=== PATIENT | female | born 1955 | race Caucasian/White ===

== ENCOUNTER → 2020-11-09 | Day surgery (SDC) | payer MEDICARE ==
[2020-11-09 07:31] VITALS: RESP 16
[2020-11-09 08:39] VITALS: BP 134/71; PULSE 74; TEMP 98.3
--- NOTE | 2020-11-09 09:08 | MM ---
EXAMINATION TYPE: MG stereo VAD BX LT DATE OF EXAM: 11/09/2020 COMPARISON: Outside mammogram October 26, 2020 and older mammograms. CLINICAL HISTORY: Increasing group of calcifications left breast TECHNIQUE: Stereotactic guided core biopsy of left breast with clip placement and follow-up two-view mammogram. FINDINGS: The procedure of stereotactic guided core biopsy was explained to the patient. Benefits, alternatives, and risks were discussed. An informed consent was then obtained. [facility] pathway for biopsy was chosen. Shortness pathway was lateral approach. I performed the localization, then performed the remainder of the procedure. Overlying skin is cleansed with Betadine. Lidocaine is used as anesthetic into the skin and deeper tissue. Lidocaine with epinephrine is used as anesthetic into the deeper tissue during sampling. A vacuum assisted biopsy gun was used to obtain multiple core samples. The patient tolerated the procedure well without any immediate complication. The patient was kept in the radiology department for short stay after the procedure and then discharged home in stable condition. Targeted calcifications are identified in specimen mammogram. Post biopsy mammogram shows the clip to appear in satisfactory position relative to the targeted area of concern on the preprocedure images. IMPRESSION: SUCCESSFUL, UNCOMPLICATED STEREOTACTIC GUIDED CORE BIOPSY OF AREA OF CONCERN IN THE LEFT BREAST, FULL PATHOLOGY RESULTS TO FOLLOW. Low to intermediate index of suspicion noted at time of procedure. Pathology Results: High Risk LEFT BREAST, STEREOTACTIC CORE BIOPSY: Intraductal papilloma. Background breast showing focal atypical ductal hyperplasia (ADH) and fibrocystic changes. Recommendation Surgical consult, open biopsy of the left breast. DEANNAD
== END ==
LOC: RADMAMWWP 06:59
PROVIDERS: ATTEND Family Medicine
DX: D24.2 Benign neoplasm of left breast (principal); N60.12 Diffuse cystic mastopathy of left breast; N60.92 Unspecified benign mammary dysplasia of left breast
CPT/HCPCS: 88305; 19081; A4648; J2001

== ENCOUNTER → 2020-12-02 | Outpatient (CLI) | payer MEDICARE ==
[2020-12-02 15:54] VITALS: BP 126/75; PULSE 82; RESP 18; TEMP 98.2
--- NOTE | 2020-12-02 16:25 | P.GSHP ---
History of Present Illness H&P Date: 12/02/20 Chief Complaint: Intraductal papilloma/atypical hyperplasia on core biopsy of the left kale Gandhi is a 65-year-old white female seen in consultation for Dr. 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 The patient underwent a bilateral mammogram on [id number]. This revealed an increasing number of microcalcifications in the lateral aspect of the left breast at the 3 o'clock position. She subsequently underwent diagnostic left breast studies an 1220 320. This again showed microcalcifications at the 3 o'clock position of the left breast. The patient underwent a stereotactic core biopsy on 11/09/2020 of this area and this revealed intraductal papilloma and focal atypical ductal hyperplasia. The patient did not feel anything in her breast prior to the mammogram in October. She tolerated this stereotactic core biopsy with no difficulty. The patient is not complaining of any lumps masses or nodules in her breast. She is not complaining of any nipple discharge or skin changes. She has not had any history of recent trauma or infection of the breast. She had a cyst removed from her right breast many years ago which was benign. Caffiene: 1-2 cups/day nicotine: E-Cigarettes; 3/day thro-bromine: occasional Family History: maternal grandmother: breast cancer sister: from breast cancer, in her 50's niece: from breast cancer early 30's father: leukemia Hormonal History: menarche: 14 , breast fed: no; age at first : 20 menopause: hysterectomy at 35, took ovaries, no cancer BCP: 15 years hormones: none Surgical history: Total abdominal hysterectomy Left ear surgery Tonsillectomy Lipoma removed from her back 2 C-sections Medical history: diabetes Social History: nicotine: 2PPD/25 years; now E cigarettes for approximately 5 years Alcohol: Negative Drugs: Negative - Constitutional Constitutional: Denies chills, Denies fever - EENT Eyes: denies blurred vision, denies pain Ears: left: decreased hearing (ear drum replaced), deny: tinnitus Ears, nose, mouth and throat: Denies headache, Denies sore throat - Breasts Breasts: bilateral: as per HPI - Cardiovascular Cardiovascular: Denies chest pain, Denies shortness of breath - Respiratory Comment: smoker, sleep apnea Respiratory: Denies cough, Denies 7 - Gastrointestinal Gastrointestinal: Denies abdominal pain, Denies diarrhea, Denies nausea, Denies vomiting - Genitourinary (Female) Genitourinary: Denies dysuria, Denies hematuria - Menstruation Menstruation: Reports post hysterectomy - Musculoskeletal Comment: arthritis - Integumentary Integumentary: Denies pruritus, Denies rash - Neurological Neurological: Denies numbness, Denies weakness - Psychiatric Psychiatric: Denies anxiety, Denies depression - Endocrine Comment: hypothyroid Endocrine: Denies fatigue, Denies weight change - Hematologic/Lymphatic Comment: none - Allergic/Immunologic Allergic/Immunologic: Reports seasonal allergies Past Medical History Past Medical History: Diabetes Mellitus, Hearing Disorder / Deafness, Sleep Apnea/CPAP/BIPAP, Thyroid Disorder Additional Past Medical History / Comment(s): [place] -LEFT EAR, INCONTINENCE, History of Any Multi-Drug Resistant Organisms: None Reported Past Surgical History: Breast Surgery, Section, Heart Catheterization With Stent, Hysterectomy, Tonsillectomy Additional Past Surgical History / Comment(s): LAP BAND, LEFT EAR SURGERY. lipoma removed from back Past Anesthesia/Blood Transfusion Reactions: No Reported Reaction Date of Last Stent Placement:: 03/09/2019 Past Psychological History: Depression Smoking Status: Vaper Past Alcohol Use History: Rare Additional Past Alcohol Use History / Comment(s): STARTED SMOKING AT AGE 18-QUIT SMOKING 2012- SMOKES E CIG Past Drug Use History: None Reported - Past Family History Father Family Medical History: Cancer Additional Family Medical History / Comment(s): LEUKEMIA Sister(s) Family Medical History: Cancer Additional Family Medical History / Comment(s): BREAST CANCER Medications and Allergies Home Medications Medication Instructions Recorded Confirmed Type Darifenacin Hydrobromide [Enablex] 7.5 mg PO DAILY 11/09/15 12/02/20 History Loratadine [Claritin] 10 mg PO DAILY 11/09/15 12/02/20 History sitaGLIPtin PHOS/metFORMIN HCL 1 each PO BID 11/09/15 12/02/20 History [Janumet 50-1,000 mg Tablet] Aspirin [Adult Low Dose Aspirin EC] 81 mg PO DAILY 10/31/20 12/02/20 History Calcium Carbonate/Vitamin D3 1 each PO DAILY 10/31/20 12/02/20 History [Calcium 500 mg-Vit D3 5 Mcg (200 Unit)] Fluticasone Propionate [Flonase 1 spray EA NOSTRIL DAILY 10/31/20 12/02/20 History Allergy Relief] Levothyroxine Sodium [Synthroid] 50 mcg PO DAILY 10/31/20 12/02/20 History Metoprolol Succinate [[place] 25 mg PO BID 10/31/20 12/02/20 History Sprinkle] [place]-3 Fatty Acids/Fish Oil [Fish 1 each PO BID 10/31/20 12/02/20 History Oil 1,000 mg Softgel] Rosuvastatin Calcium 40 mg PO DAILY 10/31/20 12/02/20 History Allergies Allergy/AdvReac Type Severity Reaction Status Date / Time No Known Allergies Allergy Verified 12/02/20 15:48 Surgical - Exam Vital Signs Temp Pulse Resp BP Pulse Ox 98.2 F 82 18 126/75 97 12/02/20 15:50 12/02/20 15:50 12/02/20 15:50 12/02/20 15:50 12/02/20 15:50 BMI 40.1 - General well developed, well nourished, no distress - Eyes normal ocular movement - ENT decreased hearing in the left ear normal pinna, normal nares - Neck no masses, trachea midline - Respiratory normal expansion, normal respiratory effort - Cardiovascular Rhythm: regular Heart Sounds: normal: S1, S2 - Abdomen Abdomen: soft, non tender, bowel sounds, no guarding, no rigid, no rebound - Integumentary normal turgor - Musculoskeletal normal gait - Psychiatric oriented to time, oriented to person, oriented to place, speech is normal, memory intact Breast exam: BRA 38C inspection: bilateral grade 3 ptosis Palpation: Right breast: multi-positional exam no dominant masses or nodules of concern Right axilla: No axillary adenopathy of concern Left breast: Multi-positional exam no dominant masses or nodules of concern, stereo biopsy site clean and dry no evidence of infection or hematoma Left axilla: No adenopathy of concern Results Mammogram results reviewed as well as pathology results Assessment and Plan Assessment: Impression: Diabetes Family history of cancer with sister in her 50s a niece in her 30s Consider genetic counseling Intraductal papilloma and atypical ductal hyperplasia on core biopsy patient is recommended to have needle localization and excisional biopsy Plan: 1. Needle localization and excisional biopsy left breast lesion 2. Onco-plastic tissue transfer 3. Genetic counseling Cc: Dr. Lr Encounter 45 minutes, time spent in reviewing medical records, physical examination, and counseling.
== END | disposition home or self-care (01) ==
LOC: WWCWWP 15:30
PROVIDERS: ATTEND Surgery
DX: Z53.9 Procedure and treatment not carried out, unspecified reason (principal)

== ENCOUNTER → 2021-01-26 | Outpatient (CLI) | payer MEDICARE ==
[2021-01-26 15:41] VITALS: BP 119/58; PULSE 57; RESP 18; TEMP 99.1
--- NOTE | 2021-01-26 16:01 | P.PN ---
Subjective Progress Note Date: 01/26/21 Principal diagnosis: left breast intraductal papilloma and atypia on core biopsy Oksana is a 65-year-old white female seen in consultation for Dr. 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 The patient underwent a bilateral mammogram on . This revealed an increasing number of microcalcifications in the lateral aspect of the left breast at the 3 o'clock position. She subsequently underwent diagnostic left breast studies an 1220 320. This again showed microcalcifications at the 3 o'clock position of the left breast. The patient underwent a stereotactic core biopsy on 11/09/2020 of this area and this revealed intraductal papilloma and focal atypical ductal hyperplasia. The patient did not feel anything in her breast prior to the mammogram in October. She tolerated this stereotactic core biopsy with no difficulty. The patient is not complaining of any lumps masses or nodules in her breast. She is not complaining of any nipple discharge or skin changes. She has not had any history of recent trauma or infection of the breast. She had a cyst removed from her right breast many years ago which was benign. Caffiene: 1-2 cups/day nicotine: E-Cigarettes; 3/day thro-bromine: occasional Family History: maternal grandmother: breast cancer sister: from breast cancer, in her 50's niece: from breast cancer early 30's father: leukemia Hormonal History: menarche: 14 , breast fed: no; age at first : 20 menopause: hysterectomy at 35, took ovaries, no cancer BCP: 15 years hormones: none Surgical history: Total abdominal hysterectomy Left ear surgery Tonsillectomy Lipoma removed from her back 2 C-sections Medical history: diabetes Social History: nicotine: 2PPD/25 years; now E cigarettes for approximately 5 years Alcohol: Negative Drugs: Negative - Constitutional Constitutional: Denies chills, Denies fever - EENT Eyes: denies blurred vision, denies pain Ears: left: decreased hearing (ear drum replaced), deny: tinnitus Ears, nose, mouth and throat: Denies headache, Denies sore throat - Breasts Breasts: bilateral: as per HPI - Cardiovascular Cardiovascular: Denies chest pain, Denies shortness of breath - Respiratory Comment: smoker, sleep apnea Respiratory: Denies cough - Gastrointestinal Gastrointestinal: Denies abdominal pain, Denies diarrhea, Denies nausea, Denies vomiting - Genitourinary (Female) Genitourinary: Denies dysuria, Denies hematuria - Menstruation Menstruation: Reports post hysterectomy - Musculoskeletal Comment: arthritis - Integumentary Integumentary: Denies pruritus, Denies rash - Neurological Neurological: Denies numbness, Denies weakness - Psychiatric Psychiatric: Denies anxiety, Denies depression - Endocrine Comment: hypothyroid Endocrine: Denies fatigue, Denies weight change - Hematologic/Lymphatic Comment: none - Allergic/Immunologic Allergic/Immunologic: Reports seasonal allergies Objective - Vital Signs Vital signs: Vital Signs Temp 99.1 F 01/26/21 14:48 Pulse 57 L 01/26/21 14:48 Resp 18 01/26/21 14:48 BP 119/58 01/26/21 14:48 Pulse Ox 96 01/26/21 14:48 Intake & Output 01/25/21 01/26/21 01/26/21 18:59 06:59 18:59 Weight 109.316 kg - Exam BMI 40.1 - Constitutional General appearance: Present: cooperative - EENT Eyes: Present: EOMI ENT: Present: hearing grossly normal - Neck Neck: Present: normal ROM - Respiratory Respiratory: bilateral: CTA - Cardiovascular Rhythm: regular Heart sounds: normal: S1, S2 - Gastrointestinal General gastrointestinal: Present: soft - Integumentary Integumentary: Present: normal turgor - Musculoskeletal Musculoskeletal: Present: gait normal - Psychiatric Psychiatric: Present: A&O x's 3, appropriate affect, intact judgment & insight - Additional findings Additional findings: breast exam: BRA: 38C inspection: bilateral grade 3 ptosis palpation: right breast: multipositional exam no dominate masses or nodules of concern right axilla: no adenopathy of concern left breast: multipositional exam no dominate masses or nodules of concern left axilla: no adenopathy of concern Assessment and Plan Assessment: Impression: diabetes family history of cancer intraductal papilloma Plan: 1. needle localization and excisional biopsy of the left breast 2. onco-plastic tissue transfer, we will not plan on using a mastopexy incision secondary to be asymmetry this may confer. 3. genetic testing Risks and benefits of the procedure discussed with the patient. This included but are not limited to pain, infection, reaction to the anesthetic. The possibility that the needle centimeter neck at the area was also discussed. She understands this and wishes to proceed. We have also discussed the possibility of mastopexy incision and secondary to the asymmetry this would cause she would prefer not to have a mastopexy. She does however wish to have a radical plastic tissue transfer of this is deemed necessary.
== END ==
LOC: WWCWWP 14:48
PROVIDERS: ATTEND Surgery
DX: D24.2 Benign neoplasm of left breast (principal); F17.210 Nicotine dependence, cigarettes, uncomplicated; E11.9 Type 2 diabetes mellitus without complications; Z80.3 Family history of malignant neoplasm of breast

== ENCOUNTER 2021-02-14 12:51 | Day surgery (SDC) | payer MEDICARE ==
[~2021-02-14 12:51] MED LIST: DEXAMETHASONE SOD PHOSPHATE 4 MG/ML 1 ML VIAL IV ONE; HEPARIN SODIUM,PORCINE/PF 5,000 UNIT/0.5 ML SYRINGE SQ PRN; HYDROmorphone 0.5 MG/0.5 ML SYRINGE IVP PRN; LACTATED RINGERS 1,000 ML IV SCH; LIDOCAINE 1% (10MG/ML) FOR IV START INTRADERMA PRN; MIDAZOLAM 2 MG/2 ML VIAL IV PRN; ONDANSETRON 4 MG/2 ML VIAL IVP ONE; Pre Op ABX Message 1 EACH MISC MISCELLANE ONE
[2021-02-14] MEDS ORDERED: ALPRAZolam 0.25 MG TAB ONE (13:16)
[2021-02-14] MEDS ORDERED: ONDANSETRON 4 MG/2 ML VIAL ONE (13:29)
[2021-02-14 13:34] LABS: Glucose,Whole Blood 134 mg/dL (75-99)
[2021-02-14] MEDS ORDERED: LIDOCAINE 1% INJ 10MG/ML (20 ML MDV) SQ ONE (13:59)
[2021-02-14] MEDS ORDERED: MIDAZOLAM 2 MG/2 ML VIAL ONE (15:23)
[2021-02-14] MEDS ORDERED: ePHEDrine SULFATE/0.9% NACL/PF 50 MG/5 ML SYRINGE IV ONE (15:23)
[2021-02-14] MEDS ORDERED: SUCCINYLCHOLINE CHLORIDE 100 MG/5 ML SYR IV ONE (15:23)
[2021-02-14] MEDS ORDERED: LIDOCAINE 1% INJ 10MG/ML (20 ML MDV) ONE (15:23)
[2021-02-14] MEDS ORDERED: PROPOFOL 10 MG/ML 20 ML VIAL IV ONE (15:23)
[2021-02-14] MEDS ORDERED: fentaNYL (PF) 50 MCG/ML 2 ML AMP ONE (15:23)
--- NOTE | 2021-02-14 16:39 | P.OP ---
Date of Procedure: 02/14/21 Preoperative Diagnosis: atypia on core biopsy left breast Postoperative Diagnosis: Same Procedure(s) Performed: Needle localization excisional biopsy left breast Anesthesia: BHARTIA Surgeon: Shani Larson Estimated Blood Loss (ml): 5 IV fluids (ml): 400 Pathology: other (breast tissue) Condition: stable Disposition: same day Indications for Procedure: Atypical findings on core biopsy Operative Findings: Fibrofatty breast tissue Description of Procedure: Oksana is a 65-year-old white female medical biopsy done of the left breast. This revealed atypia. She was recommended to undergo needle localization and excisional biopsy. Following needle localization of the area of concern she was taken to the operating room. The area in the left breast was prepped and draped in a sterile fashion following induction of general anesthesia. An incision was made and carried down to the shaft of the needle. Surrounding tissue was excised. The tissue was painted for orientation and sent to act radiology. X- ray revealed the area of concern had been removed. The deep tissues were evaluated for hemostasis. After assured that this was attained titanium clips were placed. The deep tissues were closed using 3-0 Vicryl suture. This was followed by closure of the subcutaneous tissue with 3-0 Vicryl. Skin was closed using a 4-0 Monocryl. Steri-Strips and Mastisol were applied. The patient tolerated the procedure in stable condition.
--- NOTE | 2021-02-14 16:40 | MM ---
EXAMINATION TYPE: MG pre op needle loc LT, MG surgical specimen LT DATE OF EXAM: 02/14/2021 COMPARISON: 11/09/2020 and 10/18/2020 CLINICAL HISTORY: 65-year-old female D24.2, biopsy proven high risk 3:00 left breast lesion, papillom a and ADH. Referred for needle localization. TECHNIQUE: Needle localization with wire placement and surgical excision of area of concern in the le ft breast. FINDINGS: The procedure of needle localization with wire placement and than surgical excision was exp lained to the patient. Benefits, alternatives, and risks were discussed. An informed consent was th en obtained. The shortest pathway for procedure was chosen. Shortest pathway was a lateral approach. The overlyin g skin was prepped and draped in usual sterile fashion. Lidocaine was used as anesthetic into the sk in and subcutaneous tissue up to the level of area of concern. A 9 cm needle was used. It was place d via a lateral approach under mammographic guidance. Subsequent 90 degrees mammogram show the needl e to be in satisfactory position relative to the targeted area. At this point, wire was placed and t he needle was withdrawn. The wire was fixed to patient's skin. Images were marked for surgeon. The patient tolerated the procedure well without any immediate complication. The patient was kept in the radiology department for short stay after the procedure and then taken to surgery for surgical e xcision. Targeted clip and wire are identified in specimen mammogram. A coarse calcification which serves as a landmark for the site of biopsy is also included in the specimen. The patient was kept in hospital f or short stay after the procedure and then discharged home in stable condition. IMPRESSION: Successful, uncomplicated needle localization with wire placement and surgical excision o f site of biopsy-proven high risk papilloma and ADH in the left breast. Full pathology results to fol low.
--- NOTE | 2021-02-14 16:43 | P.DS ---
Providers Attending physician: Shani Larson Primary care physician: Osmani Lr Plan - Discharge Summary Discharge Rx Participant: No New Discharge Prescriptions: No Action Loratadine [Claritin] 10 mg PO QAM Darifenacin Hydrobromide [Enablex] 7.5 mg PO QAM sitaGLIPtin PHOS/metFORMIN HCL [Janumet 50-1,000 mg Tablet] 1 each PO BID Levothyroxine Sodium [Synthroid] 50 mcg PO QAM Aspirin [Adult Low Dose Aspirin EC] 81 mg PO DAILY Rosuvastatin Calcium 40 mg PO QAM Fluticasone Propionate [Flonase Allergy Relief] 1 spray EA NOSTRIL DAILY PRN PRN Reason: Nasal Congestion Metoprolol Succinate [Toprol XL] 25 mg PO BID Discharge Medication List Darifenacin Hydrobromide [Enablex] 7.5 mg PO QAM 11/09/15 [History] Loratadine [Claritin] 10 mg PO QAM 11/09/15 [History] sitaGLIPtin PHOS/metFORMIN HCL [Janumet 50-1,000 mg Tablet] 1 each PO BID 11/09/15 [History] Aspirin [Adult Low Dose Aspirin EC] 81 mg PO DAILY 10/31/20 [History] Fluticasone Propionate [Flonase Allergy Relief] 1 spray EA NOSTRIL DAILY PRN 10/31/20 [History] Levothyroxine Sodium [Synthroid] 50 mcg PO QAM 10/31/20 [History] Rosuvastatin Calcium 40 mg PO QAM 10/31/20 [History] Metoprolol Succinate [Toprol XL] 25 mg PO BID 02/10/21 [History] Follow up Appointment(s)/Referral(s): Shani Larson MD [STAFF PHYSICIAN] - 1 Week Patient Instructions/Handouts: *Surgery [facility] - (Anesthesia) Discharge Instructions Outpatient Surgery Activity/Diet/Wound Care/Special Instructions: do not drive if taking narcotic pain medication, do not drive for 24 hours after discharge Will bra at all times May shower after 48 hours Discharge Disposition: HOME SELF-CARE
[2021-02-14 17:04] LABS: Glucose,Whole Blood 178 mg/dL (75-99)
[2021-02-14 17:13] VITALS: TEMP 97.6
[2021-02-14 17:33] VITALS: PULSE 70
[2021-02-14 17:50] VITALS: RESP 18
[2021-02-14 18:09] VITALS: BP 124/78
== END 2021-02-14 18:11 | disposition home or self-care (01) ==
LOC: OR 12:51
PROVIDERS: ATTEND Surgery
DX: D24.2 Benign neoplasm of left breast (principal); N60.12 Diffuse cystic mastopathy of left breast; E11.9 Type 2 diabetes mellitus without complications; F17.290 Nicotine dependence, other tobacco product, uncomplicated; N64.81 Ptosis of breast; G47.33 Obstructive sleep apnea (adult) (pediatric); E07.9 Disorder of thyroid, unspecified; F32.9 Major depressive disorder, single episode, unspecified; Z98.890 Other specified postprocedural states; Z90.710 Acquired absence of both cervix and uterus; Z90.722 Acquired absence of ovaries, bilateral; Z90.89 Acquired absence of other organs; Z91.19 Patient's noncompliance with other medical treatment and regimen; Z79.899 Other long term (current) drug therapy; Z79.84 Long term (current) use of oral hypoglycemic drugs; Z79.890 Hormone replacement therapy; Z79.82 Long term (current) use of aspirin; Z80.3 Family history of malignant neoplasm of breast; Z80.6 Family history of leukemia
CPT/HCPCS: 88307; 76098; 19281; 19125; J2250; J1100; J2405; J2001; J3010; J0330; J2704; J1644

== ENCOUNTER → 2021-02-23 | Outpatient (CLI) | payer MEDICARE ==
[2021-02-23 12:30] VITALS: BP 119/80; PULSE 54; RESP 18; TEMP 98.2
--- NOTE | 2021-02-23 12:55 | P.PN ---
Progress Note - Text Progress Note Date: 02/23/21 Oksana is a 65 -year-old white female status post left breast needle local excisional biopsy. Pathology revealed an intraductal papilloma. Postprocedure she is doing well with no complaints. She did have genetic testing performed the sample was collected and [id number]. It was reported on 3821. The results were a variant of unknown significance. No lesions of concern in the sample. PE: Incision: Clean and dry Impression: 1. Intraductal papilloma 2. Genetic testing performed results as stated Plan: 1. Repeat left breast mammogram in 6 months with physician exam at that time Cc: Dr. Lr
== END | disposition home or self-care (01) ==
LOC: WWCWWP 12:22
PROVIDERS: ATTEND Surgery
DX: D24.2 Benign neoplasm of left breast (principal)

== ENCOUNTER → 2021-08-16 | Outpatient (CLI) | payer MEDICARE ==
--- NOTE | 2021-08-16 11:50 | MM ---
Reason for exam: follow-up at short interval from prior study. Last mammogram was performed 15 years ago. History: Patient is postmenopausal and has history of high-risk lesion on a previous biopsy at age 65. Family history of breast cancer in grandmother, breast cancer in sister at age 38, and premenopausal breast cancer in relative at age 34. High risk MG pre op needle loc LT of the left breast, February 14, 2021. High risk MG stereo VAD BX LT of the left breast, November 09, 2020. Benign excisional biopsy of the right breast, July 2005. Benign cyst aspiration of the right breast, February 25, 2004. Physical Findings: Nurse did not find any significant physical abnormalities on exam. MG 3D Diag Mammo W/Cad LT CC, MLO, and XCCL view(s) were taken of the left breast. Prior study comparison: November 09, 2020, mammogram. October 18, 2020, mammogram. October 14, 2019, mammogram. The breast tissue is heterogeneously dense. This may lower the sensitivity of mammography. Finding: There are stable typically benign coarse heterogeneous, regional calcifications in the left breast. Previous mammotome biopsy in the left breast. No significant changes in finding since November 09, 2020, October 18, 2020, and October 14, 2019. These results were verbally communicated with the patient and result sheet given to the patient on 08/16/21. ASSESSMENT: Benign, BI-RAD 2 RECOMMENDATION: Routine screening mammogram of both breasts in 2 months. Back on schedule for October 2021.
== END | disposition home or self-care (01) ==
LOC: RADMAMWWP 10:29
PROVIDERS: ATTEND Surgery
DX: R92.1 Mammographic calcification found on diagnostic imaging of breast (principal); Z80.3 Family history of malignant neoplasm of breast; Z78.0 Asymptomatic menopausal state
CPT/HCPCS: 77065; G0279; 77061

== ENCOUNTER → 2021-08-24 | Outpatient (CLI) | payer MEDICARE ==
[2021-08-24 11:27] VITALS: BP 138/73; PULSE 56; RESP 16; TEMP 98.2
--- NOTE | 2021-08-24 11:31 | P.PN ---
Subjective Progress Note Date: 08/24/21 Principal diagnosis: fibrocystic breast disease left breast intraductal papilloma and atypia on core biopsy; status post needle local excisional lumpectomy and [id number] Oksana is a 66-year-old white female seen in consultation for Dr. 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 The patient underwent a bilateral mammogram on [id number]. This revealed an increasing number of microcalcifications in the lateral aspect of the left breast at the 3 o'clock position. She subsequently underwent diagnostic left breast studies an 1220 320. This again showed microcalcifications at the 3 o'clock position of the left breast. The patient underwent a stereotactic core biopsy on 11/09/2020 of this area and this revealed intraductal papilloma and focal atypical ductal hyperplasia. She underwent a needle localization [place] [address]. Pathology revealed an intraductal papilloma, margins were negative. She underwent a repeat left breast mammogram and [id number] this was benign BIRADS 2. She is not complaining of any lumps, msase, or nodules in her breast at this time. Caffiene: 1 cups/day nicotine: E-Cigarettes; 3/day thro-bromine: occasional Family History: maternal grandmother: breast cancer sister: from breast cancer, in her 50's niece: from breast cancer early 30's father: leukemia Hormonal History: menarche: 14 , breast fed: no; age at first : 20 menopause: hysterectomy at 35, took ovaries, no cancer BCP: 15 years hormones: none Surgical history: Total abdominal hysterectomy Left ear surgery Tonsillectomy Lipoma removed from her back 2 C-sections Medical history: diabetes Social History: nicotine: 2PPD/25 years; now E cigarettes for approximately 6 years Alcohol: Negative Drugs: Negative - Constitutional Constitutional: Denies chills, Denies fever - EENT Eyes: denies blurred vision, denies pain Ears: left: decreased hearing (ear drum replaced), deny: tinnitus Ears, nose, mouth and throat: Denies headache, Denies sore throat - Breasts Breasts: bilateral: as per HPI - Cardiovascular Cardiovascular: Denies chest pain, Denies shortness of breath - Respiratory Comment: smoker, sleep apnea Respiratory: Denies cough - Gastrointestinal Gastrointestinal: Denies abdominal pain, Denies diarrhea, Denies nausea, Denies vomiting - Genitourinary (Female) Genitourinary: Denies dysuria, Denies hematuria - Menstruation Menstruation: Reports post hysterectomy - Musculoskeletal Comment: arthritis - Integumentary Integumentary: Denies pruritus, Denies rash - Neurological Neurological: Denies numbness, Denies weakness - Psychiatric Psychiatric: Denies anxiety, Denies depression - Endocrine Comment: hypothyroid Endocrine: Denies fatigue, Denies weight change - Hematologic/Lymphatic Comment: none - Allergic/Immunologic Allergic/Immunologic: Reports seasonal allergies Objective - Constitutional General appearance: Present: cooperative - EENT Eyes: Present: EOMI ENT: Present: hearing grossly normal - Neck Neck: Present: normal ROM - Respiratory Respiratory: bilateral: CTA - Cardiovascular Rhythm: regular Heart sounds: normal: S1 - Gastrointestinal General gastrointestinal: Present: soft - Integumentary Integumentary: Present: normal turgor - Musculoskeletal Musculoskeletal: Present: gait normal - Psychiatric Psychiatric: Present: A&O x's 3, appropriate affect, intact judgment & insight - Additional findings Additional findings: Breast Exam: BRA: 38C inspection: Bilateral grade 3 ptosis Palpation: Right breast: Multi-positional exam fibrocystic changes no dominant masses or nodules of concern Right axilla: No adenopathy of concern Left breast: Multi-positional exam fibrocystic changes no dominant masses or nodules of concern Left axilla: No adenopathy of concern Assessment and Plan Assessment: Impression: 1. Patient status post left breast lumpectomy 2019 . Pathology benign intraductal papilloma. 2. Fibrocystic breast changes 3. Recent left breast mammogram benign BIRADS 2 Plan: 1. Repeat bilateral mammogram would have been in 2 months, however she just had a left breast mammogram she will however have a right breast mammogram in 2 months and then I will see her again if that is benign repeat bilateral mammogram at a year from that time 2. follow up after right breast mammogram 3. bilateral mammogram in October 2022 4. Patient will follow up sooner if any questions or concerns CC; Dr. Lr
== END ==
LOC: WWCWWP 11:05
PROVIDERS: ATTEND Surgery
DX: N60.11 Diffuse cystic mastopathy of right breast (principal); N60.12 Diffuse cystic mastopathy of left breast; D24.2 Benign neoplasm of left breast; Z98.890 Other specified postprocedural states; F17.290 Nicotine dependence, other tobacco product, uncomplicated; E11.9 Type 2 diabetes mellitus without complications

== ENCOUNTER → 2021-10-20 | Outpatient (CLI) | payer MEDICARE ==
--- NOTE | 2021-10-20 12:13 | MM ---
Reason for exam: screening (asymptomatic). Last mammogram was performed 2 months ago. History: Patient is postmenopausal and has history of high-risk lesion on a previous biopsy at age 65. Family history of breast cancer in grandmother, breast cancer in sister at age 38, and premenopausal breast cancer in relative at age 34. High risk MG pre op needle loc LT of the left breast, February 14, 2021. High risk MG stereo VAD BX LT of the left breast, November 09, 2020. Benign excisional biopsy of the right breast, July 2005. Benign cyst aspiration of the right breast, February 25, 2004. Physical Findings: A clinical breast exam by your physician is recommended on an annual basis and results should be correlated with mammographic findings. MG 3D Diag Mammo W/Cad JV Bilateral CC, MLO, and XCCL view(s) were taken. Prior study comparison: August 16, 2021, left breast MG 3d diag mammo w/cad LT. October 18, 2020, mammogram. The breast tissue is heterogeneously dense. This may lower the sensitivity of mammography. There are benign appearing round vascular calcifications bilaterally. There is no discrete abnormality. These results were verbally communicated with the patient and result sheet given to the patient on 10/20/21. ASSESSMENT: Benign, BI-RAD 2 RECOMMENDATION: Follow-up diagnostic mammogram of both breasts in 1 year.
[2021-10-20 13:28] VITALS: BP 120/71; PULSE 54; RESP 18; TEMP 98.5
--- NOTE | 2021-10-20 13:41 | P.PN ---
Subjective Progress Note Date: 10/20/21 Principal diagnosis: fibro-cystic breast changes fibrocystic breast disease left breast intraductal papilloma and atypia on core biopsy; status post needle local excisional lumpectomy and [id number] Oksana is a 66-year-old white female seen in consultation for Dr. 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 The patient underwent a bilateral mammogram on 324579. This revealed an increasing number of microcalcifications in the lateral aspect of the left breast at the 3 o'clock position. She subsequently underwent diagnostic left breast studies an 1220 320. This again showed microcalcifications at the 3 o'clock position of the left breast. The patient underwent a stereotactic core biopsy on 11/09/2020 of this area and this revealed intraductal papilloma and focal atypical ductal hyperplasia. She underwent a needle localization [place] [address]. Pathology revealed an intraductal papilloma, margins were negative. She underwent a repeat left breast mammogram and 225994 this was benign BIRADS 2. She had a bilateral mammogram on 619505 this was benign BIRADS 2 and 1 year repeat mammogram is recommended. She is not complaining of any lumps, msase, or nodules in her breast at this time. She underwent a breast examination on 1019 121 and has declined another examination at this time. Appointment today was simply for discussion of the mammogram results. Plan: 1. Repeat bilateral mammogram in 1 year with physician exam at that time 2. Follow up sooner if any questions or concerns Cc: Dr. Lr Objective - Vital Signs Vital signs: Vital Signs Temp 98.5 F 10/20/21 13:26 Pulse 54 L 10/20/21 13:26 Resp 18 10/20/21 13:26 BP 120/71 10/20/21 13:26 Pulse Ox 98 10/20/21 13:26 Intake & Output 10/19/21 10/20/21 10/20/21 18:59 06:59 18:59 Weight 105.233 kg
== END | disposition home or self-care (01) ==
LOC: RADMAMWWP 10:42
PROVIDERS: ATTEND Surgery
DX: R92.1 Mammographic calcification found on diagnostic imaging of breast (principal); N60.89 Other benign mammary dysplasias of unspecified breast
CPT/HCPCS: 77066; G0279; 77062

== ENCOUNTER → 2022-10-25 | Outpatient (CLI) | payer MEDICARE ==
--- NOTE | 2022-10-25 12:02 | MM ---
Reason for Exam: Additional evaluation requested from prior study. Last screening mammogram was performed 12 month(s) ago. Patient History: Menarche at age 15. First Full-Term at age 23. Left ovary removed at age 48. Right ovary removed at age 48. Hysterectomy at age 48. Postmenopausal. 07/2005, Benign Excisional Biopsy on the right side. 02/14/2021, High risk Core Biopsy on the left side. 11/09/2020, High risk Core Biopsy on the left side. 02/25/2004, Benign Cyst Aspiration on the right side. Maternal unspecified had breast cancer, age 34. Maternal grandmother had breast cancer. Sister had breast cancer, age 38. Risk Values: Kassidy 5 year model risk: 4.6%. NCI Lifetime model risk: 13.7%. Prior Study Comparison: 01/19/2004 Bilateral Screening Mammogram, [facility]. 10/17/2004 Right Screening Mammogram, [place]. 12/17/2005 Right Diagnostic Mammogram, [facility]. 08/27/2006 Bilateral Diagnostic Mammogram, [facility]. 10/14/2019 Screening Mammogram, Unknown. 10/18/2020 Screening Mammogram, Unknown. 11/09/2020 Screening Mammogram, Unknown. 08/16/2021 Left Diagnostic Mammogram, [facility]. 10/20/2021 Bilateral Diagnostic Mammogram, [facility]. Tissue Density: The breast tissue is heterogeneously dense. This may lower the sensitivity of mammography. Findings: Analyzed By CAD. Lateral asymmetric density on the left breast does not persist on additional views. Benign bilateral vascular calcifications. Benign coarse clustered microcalcifications inner right breast. Adjacent nodular asymmetric density may be slightly more pronounced compared to the 2019 exam and can be further evaluated with ultrasound. Otherwise, there are asymmetric densities bilaterally which appear to be unchanged when compared to various prior studies. Overall Assessment: Incomplete: need additional imaging evaluation, BI-RAD 0 Management: Diagnostic Breast Ultrasound of the right breast. Medial half for nodular asymmetric density. Electronically signed and approved by: Ha Escobar M.D. Radiologist
[2022-10-25 13:02] VITALS: BP 114/83; PULSE 89; RESP 16; TEMP 98.2
== END ==
LOC: WWCWWP 10:45
PROVIDERS: ATTEND Surgery
DX: R92.8 Other abnormal and inconclusive findings on diagnostic imaging of breast (principal); Z87.891 Personal history of nicotine dependence
CPT/HCPCS: 77062; 77066

== ENCOUNTER → 2023-04-25 | Outpatient (CLI) | payer MEDICARE ==
--- NOTE | 2023-04-25 16:38 | P.PN ---
Progress Note - Text Progress Note Date: 04/25/23 Oksana is a 67-year-old female who was recommended to have a repeat right breast mammogram 6 months from her last bilateral mammogram on [id number]. Repeat right breast mammogram was performed on . This was probably benign BIRADS 3 and repeat bilateral mammogram in 6 months was recommended. The patient is not complaining of any changes in her breast exam. She was given the option of coming in and see me sooner however she would like to wait for the 6 months. Her appointment on was canceled secondary to a surgical emergency.
== END ==
LOC: WWCWWP 12:45
PROVIDERS: ATTEND Surgery
DX: Z04.9 Encounter for examination and observation for unspecified reason (principal); R92.8 Other abnormal and inconclusive findings on diagnostic imaging of breast; Z87.891 Personal history of nicotine dependence

== ENCOUNTER → 2023-04-25 | Outpatient (CLI) | payer MEDICARE ==
--- NOTE | 2023-04-25 13:23 | MM ---
Reason for Exam: Follow-up at short interval from prior study. Last screening mammogram was performed 6 month(s) ago. Patient History: Menarche at age 15. First Full-Term at age 23. Left ovary removed at age 48. Right ovary removed at age 48. Hysterectomy at age 48. Postmenopausal. 07/2005, Benign Excisional Biopsy on the right side. 02/14/2021, High risk Core Biopsy on the left side. 11/09/2020, High risk Core Biopsy on the left side. 02/25/2004, Benign Cyst Aspiration on the right side. Maternal unspecified had breast cancer, age 34. Maternal grandmother had breast cancer. Sister had breast cancer, age 38. Risk Values: Kassidy 5 year model risk: 4.6%. NCI Lifetime model risk: 13.7%. Prior Study Comparison: 08/16/2021 Left Diagnostic Mammogram, [facility]. 10/20/2021 Bilateral Diagnostic Mammogram, [facility]. 10/25/2022 Bilateral MG 3D diag mammo w/cad JV, [facility]. Tissue Density: Right: The breast tissue is heterogeneously dense. This may lower the sensitivity of mammography. Findings: Analyzed By CAD. Coarse microcalcifications medial central right breast anterior depth redemonstrated. Adjacent area of oval asymmetric density remains unchanged for 6 months. Ongoing short interval follow-up recommended. Benign vascular calcifications. Otherwise, no significant change. Overall Assessment: Probably benign, BI-RAD 3 Management: Diagnostic Mammogram of both breasts in 6 months. Total one-year follow-up right breast asymmetric density. Annual exam of the left breast. See note below in regards to patient's increased 5 year Kassidy score. Results were given to the patient verbally at the time of exam. Patient should continue monthly self-breast exams. A clinical breast exam by your physician is recommended on an annual basis. This exam should not preclude additional follow-up of suspicious palpable abnormalities. Note on Kassidy scores and lifetime risk: 1. A Kassidy score greater than 3% is considered moderate risk. If this is the case, consider specialist referral to assess eligibility for a risk reducing agent. 2. If overall lifetime risk for the development of breast cancer is 20% or higher, the patient may qualify for future screening with alternating mammogram and breast MRI. Electronically signed and approved by: Ha Escobar M.D. Radiologist
== END | disposition home or self-care (01) ==
LOC: RADMAMWWP 12:43
PROVIDERS: ATTEND Surgery
DX: R92.8 Other abnormal and inconclusive findings on diagnostic imaging of breast (principal); Z78.0 Asymptomatic menopausal state; Z80.3 Family history of malignant neoplasm of breast
CPT/HCPCS: 77061; 77065

== ENCOUNTER → 2023-11-12 | Outpatient (CLI) | payer MEDICARE ==
--- NOTE | 2023-11-12 14:48 | MM ---
Reason for Exam: Additional evaluation requested from prior study. Last mammogram was performed 1 year(s) and 1 month(s) ago. Patient History: Menarche at age 15. First Full-Term at age 23. Left ovary removed at age 48. Right ovary removed at age 48. Hysterectomy at age 48. Postmenopausal. 07/2005, Benign Excisional Biopsy on the right side. 02/14/2021, High risk Core Biopsy on the left side. 11/09/2020, High risk Core Biopsy on the left side. 02/25/2004, Benign Cyst Aspiration on the right side. Maternal unspecified had breast cancer, age 34. Maternal grandmother had breast cancer. Sister had breast cancer, age 38. Risk Values: Kassidy 5 year model risk: 4.6%. NCI Lifetime model risk: 13.1%. Tissue Density: The breast tissue is heterogeneously dense. This may lower the sensitivity of mammography. Findings: Analyzed By CAD. Pattern appears symmetrical and stable. Benign vascular calcification is present bilaterally. Pacemaker overlies left chest. Coarse calcifications within the anterior right breast. The focal asymmetry in the subareolar right breast appears stable. No interval growth is evident. No underlying spiculated or lobular mass evident. No suspicious groups of microcalcifications, spiculated or lobular masses, architectural distortion or other secondary signs of malignancy are mammographically apparent. Overall Assessment: Benign, BI-RAD 2 Management: Screening Mammogram of both breasts in 1 year. A negative mammogram report should not preclude additional follow up of suspicious palpable abnormalities. Patient should continue monthly self breast exam. A clinical breast exam by your physician is recommended on an annual basis and results should be correlated with mammographic findings. Electronically signed and approved by: Suresh Johnsno D.O. Radiologis
== END | disposition home or self-care (01) ==
LOC: RADMAMWWP 14:20
PROVIDERS: ATTEND Surgery
DX: R92.333 Mammographic heterogeneous density, bilateral breasts (principal); Z78.0 Asymptomatic menopausal state; Z80.3 Family history of malignant neoplasm of breast
CPT/HCPCS: 77062; 77066

== ENCOUNTER → 2023-12-26 | Outpatient (CLI) | payer MEDICARE ==
--- NOTE | 2023-12-26 13:31 | P.PN ---
Subjective Progress Note Date: 12/26/23 10/25/22 Principal diagnosis: history of left breast intraductal papilloma left breast intraductal papilloma and atypia on core biopsy Oksana is a 58-year-old white female seen in consultation for Dr. 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 The patient underwent a bilateral mammogram on 058172. This revealed an increasing number of microcalcifications in the lateral aspect of the left breast at the 3 o'clock position. She subsequently underwent diagnostic left breast studies an 1220 320. This again showed microcalcifications at the 3 o'clock position of the left breast. The patient underwent a stereotactic core biopsy on 11/09/2020 of this area and this revealed intraductal papilloma and focal atypical ductal hyperplasia. The patient on a core biopsy of the left breast was noted to have an intraductal papilloma. She underwent a needle localization and excisional lumpectomy on . She had a bilateral mammogram on 10-25-22 after which an ultrasound of the right breast was recommended. The patient is not complaining of any new lumps masses or nodules of concern in either breast. 12-26-23 Bilateral mammogram on 11-12-23 BIRAD 2, personally reviewed She is not complaining of any new lumps masses or nodules of concern in either breast. Approximately week ago she did experience some left breast discomfort which has resolved. She did not have any trauma or infection in the breast. She is not complaning of any abnormal nipple discharge. Kassidy risk 5 years: 4.6% Caffiene: 1-2 cups/day nicotine: E-Cigarettes; 3/day chocolate: occasional Family History: maternal grandmother: breast cancer sister: from breast cancer, in her 50's niece: from breast cancer early 30's father: leukemia Hormonal History: menarche: 14 , breast fed: no; age at first : 20 menopause: hysterectomy at 35, took ovaries, no cancer BCP: 15 years hormones: none Surgical history: Total abdominal hysterectomy Left ear surgery Tonsillectomy Lipoma removed from her back 2 C-sections pacemaker put in in July Medical history: diabetes cardiac heart block Social History: nicotine: 2PPD/25 years; now E cigarettes for approximately 5 years Alcohol: Negative Drugs: Negative - Constitutional Constitutional: Denies chills, Denies fever - EENT Eyes: denies blurred vision, denies pain Ears: left: decreased hearing (ear drum replaced), deny: tinnitus Ears, nose, mouth and throat: Denies headache, Denies sore throat - Breasts Breasts: bilateral: as per HPI - Cardiovascular Cardiovascular: Denies chest pain, Denies shortness of breath; heart block has a pacemaker - Respiratory Comment: smoker, sleep apnea Respiratory: Denies cough - Gastrointestinal Gastrointestinal: Denies abdominal pain, Denies diarrhea, Denies nausea, Denies vomiting - Genitourinary (Female) Genitourinary: Denies dysuria, Denies hematuria - Menstruation Menstruation: Reports post hysterectomy - Musculoskeletal Comment: arthritis - Integumentary Integumentary: Denies pruritus, Denies rash - Neurological Neurological: Denies numbness, Denies weakness - Psychiatric Psychiatric: Denies anxiety, Denies depression - Endocrine Comment: hypothyroid Endocrine: Denies fatigue, Denies weight change - Hematologic/Lymphatic Comment: none - Allergic/Immunologic Allergic/Immunologic: Reports seasonal allergies Objective - Vital Signs Vital signs: Vital Signs Temp 98.2 F 12/26/23 13:16 Pulse 88 12/26/23 13:16 Resp 15 12/26/23 13:16 BP 111/76 12/26/23 13:16 Pulse Ox 96 12/26/23 13:16 FiO2 Intake & Output 12/25/23 12/26/23 12/26/23 18:59 06:59 18:59 Weight 104.326 kg - Constitutional General appearance: Present: cooperative - EENT Eyes: Present: EOMI ENT: Present: hearing grossly normal - Neck Neck: Present: normal ROM - Respiratory Respiratory: bilateral: CTA - Cardiovascular Heart sounds: normal: S1, S2 - Integumentary Integumentary: Present: normal turgor - Musculoskeletal Musculoskeletal: Present: gait normal - Psychiatric Psychiatric: Present: A&O x's 3, appropriate affect, intact judgment & insight - Additional findings Additional findings: Breast Exam: BRA: 40C inspection: Scar right breast from prior biopsy, well-healed scar left chest wall from pacemaker placement; bilatearl grade 3 ptosis Palpation: Right breast: Multiple positional exams fibrocystic changes no dominant masses or nodules of concern Right axilla: No adenopathy of concern Left breast: Multiple positional exam fibrocystic changes no dominant masses or nodules of concern, attention to the lateral aspect of the breast does not reveal any dominant masses or nodules of concern this is the area which was tender approximately a week ago Left axilla: No adenopathy of concern Assessment and Plan Assessment: Impression: Prior history of left breast intraductal papilloma and atypia Kassidy risk model at 5 years is 4.6% Bilateral mammogram on 11-12-23 Plan: We discussed chemoprevention at this time the patient has declined we'll continue close surveillance Bilateral mammogram 11-13-24 with appointment to follow Patient will continue to do breast self-examination Cc: Dr. Lr
[2023-12-26 13:47] VITALS: BP 111/76; PULSE 88; RESP 15; TEMP 98.2
== END ==
LOC: WWCWWP 12:40
PROVIDERS: ATTEND Surgery
DX: D24.2 Benign neoplasm of left breast (principal); N60.92 Unspecified benign mammary dysplasia of left breast; E11.9 Type 2 diabetes mellitus without complications; F17.290 Nicotine dependence, other tobacco product, uncomplicated; Z80.3 Family history of malignant neoplasm of breast; Z95.0 Presence of cardiac pacemaker; Z86.018 Personal history of other benign neoplasm; Z79.82 Long term (current) use of aspirin; Z79.84 Long term (current) use of oral hypoglycemic drugs